=== PATIENT | male | born 1990 | race Two or more races ===

== ENCOUNTER 2019-02-11 16:41 | Emergency (ER) | payer SELFPAY ==
[~2019-02-11] VITALS: Ht 180.3 cm; Wt 86.2 kg
--- NOTE | 2019-02-11 16:45 | NUR ---
ED Nurse Note: BIB by ambulance d/t injury on right ankle. Reported pt was playing soccer and kicked a ball and injured his right ankle. ETOH use.
--- NOTE | 2019-02-11 16:48 | Emergency Room Report ---
History of Present Illness General Chief Complaint: Lower Extremity Injury Source: Patient Present Illness HPI 28-year-old male presents with right ankle pain that started just prior to arrival, patient endorses sharp pain aggravated with movement alleviated with rest, he was playing soccer, he does not remember how he injured his right ankle , patient states he drank prior to coming, history is limited. Characterization is sharp, onset is just prior to arrival, aggravating factors are movement, alleviating factors no movement, no radiation of pain severity is severe Allergies: Coded Allergies: No Known Allergies (Unverified , 02/11/19) Patient History Past Medical History: see triage record Social History: Reports: alcohol use - Social Reviewed Nursing Documentation: PMH: Agreed; PSxH: Agreed Nursing Documentation-PMH Past Medical History: No Stated History Review of Systems All Other Systems: limited - Patient currently intoxicated with alcohol Physical Exam Vital Signs Date Time Temp Pulse Resp B/P (MAP) Pulse Ox O2 Delivery O2 Flow Rate FiO2 02/11/19 16:28 98.8 92 16 122/68 (86) 99 Room Air Sp02 EP Interpretation: reviewed, normal General Appearance: well appearing, no apparent distress, alert Head: normocephalic, atraumatic Eyes: bilateral eye PERRL, bilateral eye EOMI ENT: uvula midline, moist mucus membranes Neck: supple, thyroid normal, supple/symm/no masses Respiratory: lungs clear, no respiratory distress, no retraction, no accessory muscle use Cardiovascular #1: normal peripheral pulses, regular rate, rhythm, no edema, no gallop, no murmur Gastrointestinal: non tender, soft, no guarding, no rebound Musculoskeletal: other - Right ankle deformed, 1+ PT, cap refill less than 3 seconds, deformity of the right ankle, patient is able to fire EHL, sensation grossly intact Neurologic: alert, oriented x3 Psychiatric: mood/affect normal Skin: no rash, warm/dry Procedures Splinting Splinting : Consent: Verbal Location: right ankle Hand-Made Type: plaster Splint: stirrup posterior leg long Pre-Proc Neuro Vasc Exam: normal Post-Proc Neuro Vasc Exam: normal Patient Tolerated: Well Complications: None Joint Reduction Joint Reduction : Consent: Verbal Joint Reduction Site: other - Right ankle Procedural Sedation: No Reduction Attempts: One Pre-Procedure NV Exam: Yes Post-Procedure NV Exam: Yes Post Joint Reduction Film: joint reduced Patient Tolerated: Well Complications: None Medical Decision Making Diagnostic Impression: Primary Impression: Fracture of ankle, trimalleolar, closed Qualified Codes: S82.851A - Displaced trimalleolar fracture of right lower leg , initial encounter for closed fracture Additional Impressions: Ankle fracture, right Qualified Codes: S82.891A - Other fracture of right lower leg, initial encounter for closed fracture Alcohol intoxication Qualified Codes: F10.920 - Alcohol use, unspecified with intoxication, uncomplicated ER Course Patient with closed right ankle fracture, not open reduced with ankle block, and 100 of fentanyl, patient tolerated procedure well without any issues, consent was obtained verbally patient was neurovascularly intact Cures report ran Patient initially drunk, now sober, will disposition patient home with crutches , return precautions discussed follow-up with PCP Laboratory Tests Test 02/11/19 16:50 White Blood Count 17.1 K/UL (4.8-10.8) H Red Blood Count 5.05 M/UL (4.70-6.10) Hemoglobin 16.4 G/DL (14.2-18.0) Hematocrit 48.2 % (42.0-52.0) Mean Corpuscular Volume 95 FL (80-99) Mean Corpuscular Hemoglobin 32.5 PG (27.0-31.0) H Mean Corpuscular Hemoglobin Concent 34.0 G/DL (32.0-36.0) Red Cell Distribution Width 12.4 % (11.6-14.8) Platelet Count 360 K/UL (150-450) Mean Platelet Volume 5.8 FL (6.5-10.1) L Neutrophils (%) (Auto) 78.7 % (45.0-75.0) H Lymphocytes (%) (Auto) 12.9 % (20.0-45.0) L Monocytes (%) (Auto) 6.7 % (1.0-10.0) Eosinophils (%) (Auto) 0.7 % (0.0-3.0) Basophils (%) (Auto) 1.0 % (0.0-2.0) Prothrombin Time 10.3 SEC (9.30-11.50) Prothrombin Time INR 1.0 (0.9-1.1) PTT 23 SEC (23-33) Sodium Level 141 MMOL/L (136-145) Potassium Level 4.6 MMOL/L (3.5-5.1) Chloride Level 105 MMOL/L (98-107) Carbon Dioxide Level 25 MMOL/L (21-32) Anion Gap 11 mmol/L (5-15) Blood Urea Nitrogen 9 mg/dL (7-18) Creatinine 1.0 MG/DL (0.55-1.30) Estimate Glomerular Filtration Rate > 60 mL/min (>60) Glucose Level 117 MG/DL (74-106) H Calcium Level 9.7 MG/DL (8.5-10.1) Total Bilirubin 0.4 MG/DL (0.2-1.0) Aspartate Amino Transferase (AST) 34 U/L (15-37) Alanine Aminotransferase (ALT) 40 U/L (12-78) Alkaline Phosphatase 69 U/L (46-116) Total Protein 7.7 G/DL (6.4-8.2) Albumin 4.4 G/DL (3.4-5.0) Globulin 3.3 g/dL Albumin/Globulin Ratio 1.3 (1.0-2.7) EKG Diagnostic Results EKG Time: 16:45 EP Interpretation: NSR, rate 99, QTc 441, no acute ST elevations, normal axis Rate: normal Rhythm: NSR ST Segments: no acute changes Chest X-Ray Diagnostic Results Chest X-Ray Diagnostic Results : Chest X-Ray Ordered: Yes # of Views/Limited/Complete: 1 View Indication: Other - Preoperative EP Interpretation: Yes Interpretation: no consolidation, no effusion, no pneumothorax, no acute cardiopulmonary disease Impression: No acute disease Electronically Signed by: Satish Pleitez MD Other X-Ray Diagnostic Results Other X-Ray Diagnostic Results : X-Ray ordered: right ankle # of Views/Limited Vs Complete: 3 View Indication: Pain EP Interpretation: Yes Interpretation: other - interval reduction Impression: Other - interval reduction Electronically Signed by: Satish Pleitez MD CT/MRI/US Diagnostic Results CT/MRI/US Diagnostic Results : Impression FILM RIGHT ANKLE:XR 3 views right ankle for pain Findings: Acute fracture-dislocation of the right ankle with widening of the mortise and anterior medial dislocation of the distal tibia relative to the laterally displaced talus. There is fracture of the lateral tibial epiphysis, comminuted fracture of the medial malleolus, and transverse complete fracture of the distal fibula 9 cm proximal to the lateral malleolus. The fibula fracture shows apex anteromedial angulation. There is associated soft tissue swelling and deformity. No radiopaque foreign body or abnormal soft tissue gas is seen. Impression: Complex Amor type C fracture dislocation of the right ankle with residual deformity resembling an eversion type mechanism of injury. Last Vital Signs Date Time Temp Pulse Resp B/P (MAP) Pulse Ox O2 Delivery O2 Flow Rate FiO2 02/11/19 16:28 98.8 92 16 122/68 (86) 99 Room Air Disposition: HOME, SELF-CARE Condition: Stable Scripts Hydrocodone Bit/Acetaminophen 5-325* (NORCO 5-325*) 1 Each Tablet 1 TAB ORAL Q6H PRN for For Pain, #12 TAB 0 Refills Prov: Satish Pleitez MD 02/11/19 Referrals: [facility] Patient Instructions: Alcohol Intoxication, [id number], Ankle Fracture, Easy- to-Read, Cast or Splint Care, [id number], Complex Ankle Fracture Additional Instructions: The patient was provided with discharge instructions, notified to follow-up with a primary care doctor and or specialist in the next 24-48 hours, and to return to the ED if they have worsening of their symptoms. Please note that this report is being documented using [employer] technology. This can lead to erroneous entry secondary to incorrect interpretation by the dictating instrument. PLEASE FOLLOW-UP WITH ORTHO SOON POSSIBLE 24-48 HOURS Satish Pleitez MD Feb 11, 2019 16:48
[2019-02-11] MEDS ORDERED: oxyCODONE HCL/Acetaminophen 5/325mg ORAL ONE (17:00)
[2019-02-11 17:12] LABS: EOSINOPHILS % (AUTO) 0.7 % (0.0-3.0); HEMATOCRIT 48.2 % (42.0-52.0); HEMOGLOBIN 16.4 G/DL (14.2-18.0); LYMPHOCYTES % (AUTO) 12.9 % (20.0-45.0); MEAN CORPUSCULAR VOLUME 95 FL (80-99); MONOCYTES % (AUTO) 6.7 % (1.0-10.0); NEUTROPHILS % (AUTO) 78.7 % (45.0-75.0); PLATELET COUNT 360 K/UL (150-450); RED BLOOD COUNT 5.05 M/UL (4.70-6.10); RED CELL DISTRIBUTION WIDTH 12.4 % (11.6-14.8); WHITE BLOOD COUNT 17.1 K/UL (4.8-10.8)
[2019-02-11 17:17] LABS: ANION GAP 11 mmol/L (5-15); BLOOD UREA NITROGEN 9 mg/dL (7-18); CALCIUM 9.7 MG/DL (8.5-10.1); CARBON DIOXIDE 25 MMOL/L (21-32); CHLORIDE 105 MMOL/L (98-107); POTASSIUM 4.6 MMOL/L (3.5-5.1); SODIUM 141 MMOL/L (136-145)
[2019-02-11 17:21] VITALS: BP 132/81
[2019-02-11 17:23] LABS: ALANINE AMINOTRANSFERASE 40 U/L (12-78); ALBUMIN 4.4 G/DL (3.4-5.0); ALBUMIN/GLOBULIN RATIO 1.3 (1.0-2.7); ALKALINE PHOSPHATASE 69 U/L (46-116); ASPARTATE AMINO TRANSFERASE 34 U/L (15-37); BILIRUBIN,TOTAL 0.4 MG/DL (0.2-1.0)
[2019-02-11] MEDS ORDERED: fentaNYL 100 mcg/2 mL IV ONE (18:00)
[2019-02-11] MEDS ORDERED: Lidocaine 1% Plain 30 ml INJ ONE (18:45)
--- NOTE | 2019-02-11 18:45 | NUR ---
ED Nurse Note: ERMD at bedside with pyrotechnic assembler for cast application on right leg
--- NOTE | 2019-02-11 19:00 | NUR ---
ED Nurse Note: Received report from Rn Collette and assumed care pt cleaned and changed, noted pt tachycardic, [id number], ERMD notified regardig pt's condition, sinus tach on health services rn, vss. pt currently AA&ox2, will cont monitor, safety precautions in place. warm blanket provided for comfort.
--- NOTE | 2019-02-11 19:26 | Diagnostic Imaging Report ---
EXAM: XR Right Ankle Complete, 3 or More Views CLINICAL HISTORY: PAIN TECHNIQUE: Frontal, lateral and oblique views of the right ankle. COMPARISON: earlier same day right ankle x-rays FINDINGS: Redemonstrated is a comminuted Amor type C fracture of the distal right ankle involving the distal fibula 9 cm proximal to the lateral malleolus, comminuted fracture of the medial malleolus, and less well seen fracture of the lateral epiphysis of the distal tibia. There has been interval closed reduction and casting of the comminuted right ankle fracture with worship of near anatomic alignment between the tibia and talus and between the fracture fragments of the distal fibula. Cast material obscures detail. IMPRESSION: Interval closed reduction and casting of a comminuted right ankle fracture as described with improvement in alignment.
[2019-02-11] MEDS ORDERED: NORCO 5-325 TA1 EACH ORAL (20:09)
[2019-02-11] MEDS ORDERED: LORazepam Inj 2mg/ml 1ml IM ONE (20:15)
[2019-02-11] MEDS ORDERED: DiphenhydrAMINE 50mg/ml Inj IM ONE (20:15)
[2019-02-11] MEDS ORDERED: Haloperidol 5mg/ml Inj IM ONE (20:15)
--- NOTE | 2019-02-11 20:30 | NUR ---
ED Nurse Note: NOTIFIED ERMD REGARDING PT'S CURRENT CONDITION, PT SLEEPING, CALM AND COOPERATIVE. D/C MEDS.
--- NOTE | 2019-02-11 21:30 | NUR ---
ED Nurse Note: PT CURRENTLY SOBER AND PROVIDED ADDRESS. ERMD NOTIFIED REGARDING PT'S CONDITION.
[2019-02-11 22:00] VITALS: BP 122/78
--- NOTE | 2019-02-11 22:00 | NUR ---
ED Nurse Note: PT CLEARED TO BE D/C PER ERMD, PT DISCHARGE AND AFTERCARE INSTRUCTION GIVEN W/ PRESCRIPTION,PT ADVISED TO FOLLOW UP WITH SOUND ENGINEER AUDIO CONTROL AND CONTINUE CARE, OR RETURN TO ED IF CHANGES IN CONDITION, PT PROVIDED W/ TAXI, PT CURRENTLY SOBER aa&OX4, GCS=15, AMBULATORY W/ CRUTCHES. IV D/C AND ID BAND REMOVED.
--- NOTE | 2019-02-13 12:59 | Diagnostic Imaging Report ---
Indication: Dyspnea Comparison: None A single view chest radiograph was obtained. Findings: Cardiomediastinal appearance is within normal limits for age. The lungs are clear. Pulmonary vascularity is appropriate. The diaphragmatic contour is smooth and costophrenic angles are sharp. No pleural effusions are identified. The bones are unremarkable. Impression: No acute findings
--- NOTE | 2019-02-13 13:00 | Diagnostic Imaging Report ---
Indication: Pain right ankle Comparison: None Findings: 3 views of the right ankle obtained. There is a severe fracture dislocation of the ankle with fractures of the medial posterior malleoli, disarticulation of the tibiotalar joint with posterior and lateral displacement and fracture of the distal fibula several centimeters above the lateral malleolus. Soft tissues swelling noted.. Impression: Severe fracture dislocation
== END 2019-02-11 22:00 | disposition home or self-care (01) ==
LOC: EDBD 16:41 → EMR 21:16
DX: S82.851A Displaced trimalleolar fracture of right lower leg, initial encounter for closed fracture (principal); S82.891A Other fracture of right lower leg, initial encounter for closed fracture; F10.920 Alcohol use, unspecified with intoxication, uncomplicated; Y93.66 Activity, soccer
CPT/HCPCS: 27818; 36415; 71045; 73610; 80053; 85025; 85610; 85730; 86850; 86900; 86901; 93005; 96361; 96372; 96374; 99284; J2001; J3010; 29515